=== PATIENT | female | born 1990 | race Caucasian/White ===

== ENCOUNTER 2019-05-11 07:00 | Inpatient (IN) | payer OTHER ==
[2019-05-11] MEDS ORDERED: AMPICILLIN - 2 GM in SODIUM CHLORIDE 100 ML IVPB ONE (07:30)
[2019-05-11] MEDS ORDERED: ELECTROLYTE-148 SOLN 1,000 ML IV SCH (07:30)
[2019-05-11 08:18] LABS: BASO % 0.2 % (0-2.0); EOS % 0.5 % (0-4.5); HEMATOCRIT 36.7 % (32.4-45.2); HEMOGLOBIN 12.5 GM/dL (10.7-15.3); LYMPH % 17.1 % (8-40); MCH 32.3 pg (25.7-33.7); MCHC 34.1 g/dl (32.0-36.0); MEAN CELL VOLUME 94.8 fl (80-96); MEAN PLT VOLUME 9.4 fl (7.5-11.1); MONO % 5.9 % (3.8-10.2); NEUT % 76.3 % (42.8-82.8); RBC 3.88 M/mm3 (3.60-5.2); RDW 13.2 % (11.6-15.6); WHITE BLOOD COUNT 9.7 K/mm3 (4.0-10.0)
[2019-05-11 08:24] VITALS: BMI 27.3
[2019-05-11] MEDS ORDERED: FENTANYL/BUPIVACAINE/NS/PF - PCEA - 50 ML DISP.SYRIN EP ONE (08:30)
[2019-05-11] MEDS ORDERED: NALOXONE HCL 0.4 MG/ML VIAL IVPUSH PRN (08:43)
[2019-05-11] MEDS ORDERED: FENTANYL/BUPIVACAINE/NS/PF - PCEA - 50 ML DISP.SYRIN EP SCH ×2 (08:45→09:45)
[2019-05-11] MEDS ORDERED: BUPIVACAINE HCL/PF 0.25% (2.5MG/ML) 10 ML VIAL ONE (08:49)
[2019-05-11] MEDS ORDERED: LIDO 2%/EPI 1:200000 PRESRVFRE (20 ML SDVIAL) ONE (08:49)
[2019-05-11 09:01] LABS: PLATELET COUNT 152 K/MM3 (134-434)
[2019-05-11 09:05] LABS: BLOOD UREA NITROGEN 5.5 mg/dL (7-18); CALCIUM 8.3 mg/dL (8.5-10.1); CREATININE 0.5 mg/dL (0.55-1.3); POTASSIUM 3.5 mmol/L (3.5-5.1)
--- NOTE | 2019-05-11 09:08 | HP ---
Past Medical History - Admission Chief Complaint: painful contractions, leaking fluid History of Present Illness: 29 y/o female with SIUP at 37.5 weeks gestation here with complaints of painful contractions and leaking fluid. Pt has h/o c section X 1 for breech, then successful . uncomplicated. GBS positive. HIV negative. 1 'GTT WNL. History Source: Patient, Medical Record - Past Medical History Cardiovascular: No: HTN Pulmonary: No: Asthma Reproductive: No: Fibroids, PID ...: 3 ...Para: 2 ...LMP: 08/20/18 ... Weeks Gestation by Dates: 36.1 ...EDC by Dates: 05/24/19 ...EDC by Sono: 05/27/19 Heme/Onc: No: Anemia Infectious Disease: No: HIV, MRSA, STD's Psych: No: Anxiety, Bipolar, Depression Endocrine: No: Diabetes Mellitus - Past Surgical History Past Surgical History: Yes: Hx Myomectomy: No Hx Transabdominal Cerclage: No - Smoking History Smoking history: Never smoked - Alcohol/Substance Use Hx Alcohol Use: No History of Substance Use: reports: None - Social History Usual Living Arrangement: Yes: With Spouse ADL: Independent History of Recent Travel: No Home Medications - Allergies Allergies/Adverse Reactions: Allergies Allergy/AdvReac Type Severity Reaction Status Date / Time No Known Allergies Allergy Verified 05/11/19 08:08 - Home Medications Home Medications: Ambulatory Orders Vitamins (Sjr) - 1 tab PO DAILY 05/11/19 Review of Systems - Review of Systems Constitutional: reports: No Symptoms Eyes: reports: No Symptoms HENT: reports: No Symptoms Neck: reports: No Symptoms Cardiovascular: reports: No Symptoms Respiratory: reports: No Symptoms Gastrointestinal: reports: No Symptoms Genitourinary: reports: No Symptoms Breasts: reports: No Symptoms Reported Musculoskeletal: reports: No Symptoms Integumentary: reports: No Symptoms Neurological: reports: No Symptoms Endocrine: reports: No Symptoms Hematology/Lymphatic: reports: No Symptoms Psychiatric: reports: No Symptoms Physical Exam - Maternity Vital Signs: Vital Signs Temperature 98.2 F 05/11/19 08:11 Pulse Rate 88 05/11/19 08:11 Respiratory Rate 20 05/11/19 08:11 Blood Pressure 123/81 05/11/19 08:11 O2 Sat by Pulse Oximetry (%) Constitutional: Yes: Well Nourished, No Distress Eyes: Yes: Conjunctiva Clear HENT: Yes: Atraumatic Neck: Yes: Supple Cardiovascular: Yes: Regular Rate and Rhythm Lungs: Clear to auscultation - Abdominal Exam/OB Fundal Height: 38 Number of Fetuses: Single Presentation: Vertex Contractions: Yes Regularity: Regular Intensity: Moderate Heart Rate (range): 135 Category: I Accelerations: Uniform Decelerations: None - Vaginal Exam/OB Speculum Exam: No Dilatation (cm): 6 Effacement (%): 100 Amniotic Fluid: Yes: Clear Presentation: Vertex/Position (exam per nursing staff) - Physical Exam Psychiatric: Yes: Alert, Oriented Hemorrhage Risk Assessment - Risk Factors Medium Risk Factors: Yes: None High Risk Factors: Yes: None Risk Score: 1 Risk Level: Medium Risk Problem List - Problems (1) Desires (vaginal after ) trial Code(s): O34.219 - MATERNAL CARE FOR UNSP TYPE SCAR FROM PREVIOUS DEL (2) History of Code(s): Z98.891 - HISTORY OF UTERINE SCAR FROM PREVIOUS SURGERY (3) Active labor at term Code(s): UQT8058 - (4) Group beta Strep positive Code(s): B95.1 - STREPTOCOCCUS, GROUP B, CAUSING DISEASES CLASSD ELSWHR Assessment/Plan 29 y/o p2 female with SIUP at 37.5 weeks, SROM/labor for TOLAC AFVSS FHTS cat 1 to get epidural GBS positive, continue ampicillin continue expectant management anticipate /
[2019-05-11 09:20] LABS: INR 0.97 (0.83-1.09); PROTHROMBIN TIME (PATIENT) 11.4 SEC (9.7-13.0)
[2019-05-11] MEDS ORDERED: AMPICILLIN SODIUM 1 GM VIAL ONE (10:29)
[2019-05-11] MEDS ORDERED: OXYTOCIN 20 UNITS in 0.9% NS 20 UNIT/1,000 ML INFUS.BAG IV ONE ×2 (11:26→14:45)
[2019-05-11] MEDS ORDERED: LIDOCAINE HCL 1% PRESERVATIVE FREE - 30ML VIAL ONE (11:26)
[2019-05-11] MEDS ORDERED: AMPICILLIN - 1 GM in SODIUM CHLORIDE 100 ML IVPB SCH (11:30)
--- NOTE | 2019-05-11 13:37 | PN ---
Delivery - Delivery Vaginal Delivery: No Problems, V-Edison Type of Anesthesia: Epidural Episiotomy/Laceration: None EBL (cc): 300 Delivery, Single - Stages of Labor Date of Delivery: 05/11/19 Time of Delivery: : Date Placenta Delivered: 05/11/19 Time Placenta Delivered: Placenta: Yes: Spontaneous - Condition of Infant Gardening Supervisor/House Painting Instructor Present: No Infant Gender: Male Position: Left, OA (compound with right hand) - 1 Minute Total Score: 9 5 Minutes Total Score: 9 - Hope Feeding Plan Initial Plan: Elected not to breastfeed exclusively throughout hospitalization Remarks - Remarks Remarks: successful across intact perineum from HEATHER position tight nuchal noted after delivery of head, clamped and cut at perineum anterior shoulder (right) delivered with ease along with remainder of 3vc noted placenta delivered in tact, spontaneously no laceration noted Apgars 9/9 EBL 300 cc oxytocin infusing after delivery mom stable baby to well baby nursery
[2019-05-11] MEDS ORDERED: WITCH HAZEL 50% (TUCKS) 40 PAD/JAR PAD TP PRN (13:39)
[2019-05-11] MEDS ORDERED: BENZOCAINE 28 GM HEMORRHOIDAL OINTMENT TP PRN (13:39)
[2019-05-11] MEDS ORDERED: METHYLERGONOVINE MALEATE 0.2 MG/1 ML AMP IM PRN (13:39)
[2019-05-11] MEDS ORDERED: BENZOCAINE 20% 57 GM BOTTLE TP PRN (13:39)
[2019-05-11] MEDS ORDERED: BISACODYL 10 MG SUPP.RECT RC PRN (13:39)
[2019-05-11] MEDS ORDERED: OXYTOCIN 20 UNITS in 0.9% NS 20 UNIT/1,000 ML INFUS.BAG IV SCH (13:45)
[2019-05-11] MEDS: IBUPROFEN 600 MG TABLET (FP) PO PRN (18:12)
[2019-05-11] MEDS: ACETAMINOPHEN 325 MG TABLET (FP) PO PRN (18:13)
--- NOTE | 2019-05-12 06:18 | PN ---
Post Progress Note - Subjective Subjective: Pt without complaints. Doing well overnight. Ambulating, voiding, passing flatus. Tolerating diet. Lochia small. No complaints. Post Day: 1 Type of Delivery: Vital Signs: Vital Signs Temperature 98.4 F 05/12/19 05:44 Pulse Rate 84 05/12/19 05:44 Respiratory Rate 20 05/12/19 05:44 Blood Pressure 115/70 05/12/19 05:44 O2 Sat by Pulse Oximetry (%) 100 05/11/19 13:05 Breast Exam: Yes: Soft Uterus: Yes: Fundus Firm Abdomen/GI: Yes: Abdomen soft, Passing flatus, Tolerating PO. No: Abdominal Distention, Tender Lochia: Yes: Rubra Lochia, amount: Small Extremities: Yes: Calves non-tender. No: Edema Perineum: Yes: Intact Activity: Ambulating - Labs Labs: CBC WBC 9.7 K/mm3 (4.0-10.0) 05/11/19 08:00 RBC 3.88 M/mm3 (3.60-5.2) 05/11/19 08:00 Hgb 12.5 GM/dL (10.7-15.3) 05/11/19 08:00 Hct 36.7 % (32.4-45.2) 05/11/19 08:00 MCV 94.8 fl (80-96) 05/11/19 08:00 MCH 32.3 pg (25.7-33.7) 05/11/19 08:00 MCHC 34.1 g/dl (32.0-36.0) 05/11/19 08:00 RDW 13.2 % (11.6-15.6) 05/11/19 08:00 Plt Count 152 K/MM3 (134-434) 05/11/19 08:00 MPV 9.4 fl (7.5-11.1) 05/11/19 08:00 Absolute Neuts (auto) 7.4 K/mm3 (1.5-8.0) 05/11/19 08:00 Neutrophils % 76.3 % (42.8-82.8) 05/11/19 08:00 Lymphocytes % 17.1 % (8-40) 05/11/19 08:00 Monocytes % 5.9 % (3.8-10.2) 05/11/19 08:00 Eosinophils % 0.5 % (0-4.5) 05/11/19 08:00 Basophils % 0.2 % (0-2.0) 05/11/19 08:00 Nucleated RBC % 0 % (0-0) 05/11/19 08:00 Problem List - Problems (1) Desires (vaginal after ) trial Code(s): O34.219 - MATERNAL CARE FOR UNSP TYPE SCAR FROM PREVIOUS DEL (2) History of Code(s): Z98.891 - HISTORY OF UTERINE SCAR FROM PREVIOUS SURGERY (3) Active labor at term Code(s): LKL4479 - (4) Group beta Strep positive Code(s): B95.1 - STREPTOCOCCUS, GROUP B, CAUSING DISEASES CLASSD ELSWHR (5) (vaginal after ) Code(s): O34.219 - MATERNAL CARE FOR UNSP TYPE SCAR FROM PREVIOUS DEL Assessment/Plan 29 y/o PPD#1 s/p successful encourage ambulation regular diet await a.m. CBC routine care
[2019-05-12 06:44] LABS: BASO % 0.3 % (0-2.0); EOS % 1.5 % (0-4.5); HEMOGLOBIN 12.4 GM/dL (10.7-15.3); LYMPH % 19.1 % (8-40); MCH 32.2 pg (25.7-33.7); MCHC 33.5 g/dl (32.0-36.0); MEAN PLT VOLUME 9.6 fl (7.5-11.1); MONO % 4.2 % (3.8-10.2); NEUT % 74.9 % (42.8-82.8); PLATELET COUNT 161 K/MM3 (134-434); RBC 3.85 M/mm3 (3.60-5.2); RDW 12.9 % (11.6-15.6); WHITE BLOOD COUNT 12.1 K/mm3 (4.0-10.0)
[2019-05-12] MEDS: ACETAMINOPHEN 325 MG TABLET (FP) PO PRN ×2 (08:00→16:41)
[2019-05-12] MEDS: IBUPROFEN 600 MG TABLET (FP) PO PRN ×2 (08:00→16:41)
[2019-05-12] MEDS: PRENATAL VITAMINS W/ FOLIC ACID TABLET (FP) PO SCH (09:51)
--- NOTE | 2019-05-12 18:52 | DS ---
Physical Exam-DIRECT OF REAL ESTATE Vital Signs: Vital Signs Temperature 98.8 F 05/12/19 09:11 Pulse Rate 81 05/12/19 09:11 Respiratory Rate 20 05/12/19 09:11 Blood Pressure 116/70 05/12/19 09:11 O2 Sat by Pulse Oximetry (%) 100 05/11/19 13:05 Constitutional: Yes: Well Nourished, No Distress Eyes: Yes: Conjunctiva Clear HENT: Yes: Atraumatic Neck: Yes: Supple Cardiovascular: Yes: Regular Rate and Rhythm Respiratory: Yes: Regular Gastrointestinal: Yes: Normal Bowel Sounds ....Post : Yes: Uterus firm, Uterus non-tender Neurological: Yes: Alert, Oriented Psychiatric: Yes: Alert, Oriented Labs: CBC, BMP 05/12/19 06:08 05/11/19 08:00 Delivery - Delivery Vaginal Delivery: No Problems, V-Edison Type of Anesthesia: Epidural Episiotomy/Laceration: None EBL (cc): 250 Delivery, Single - Stages of Labor Date 1st Stage Initiatied: 05/11/19 Time 1st Stage Initiated: 06:30 Date 2nd Stage Initiated: 05/11/19 Time 2nd Stage Initiated: 13:05 Date of Delivery: 05/11/19 Time of Delivery: 13:20 Time Placenta Delivered: 13:22 Placenta: Yes: Spontaneous - Condition of Lamination Inspector/Low Pressure Boiler Tender Present: No Infant Gender: Male Weight: 6 lb 12 oz Position: Left, OA Total Hours ROM (Hrs/Mins): 7hrs 50min - 1 Minute Total Score: 9 5 Minutes Total Score: 9 - Feeding Plan Initial Plan: Elected not to breastfeed exclusively throughout hospitalization Discharge Summary Reason For Visit: LABOR Current Active Problems Active labor at term (Acute) Desires (vaginal after ) trial (Acute) Group beta Strep positive (Acute) History of (Acute) (vaginal after ) (Acute) Hospital Course: Pt admitted on 05/11 in labor. Was previous c section and previous successful . She then underwent an uncomplicated and normal post recovery and was discharged home on post day 2. Condition: Good - Instructions Diet, Activity, Other Instructions: Physical activity Resume your normal everyday activity as tolerated no heavy lifting or exercise until seen by your surgeon. You may walk unlimited amounts and climb stairs. You may resume driving the car when you feel safe and comfortable behind the wheel. No sexual activity as instructed. Wound care You may shower daily, no soaking in tubs/baths/pools for 6 weeks or until cleared by your doctor. Diet There are no dietary restrictions. Eat healthy, high-fiber foods. Drink 6 to 8 glasses of liquid each day. This will assist in keeping your bowels regular. Pain management You may take Tylenol or acetaminophen or Ibuprofen as needed for pain. Call MD for any of the following: Severe pain not relieved by medication Fever of 101 or higher Excessive bleeding or drainage on dressing Inability to urinate Disposition: HOME - Home Medications Comprehensive Discharge Medication List: Ambulatory Orders Vitamins (Sjr) - 1 tab PO DAILY 05/11/19 Ibuprofen [Motrin -] 600 mg PO QID PRN #28 tablet 05/12/19
[2019-05-12] MEDS ORDERED: SENNOSIDES/DOCUSATE COMBO (SENNA PLUS) TABLET (UD) PO PRN (22:00)
[2019-05-13] MEDS: ACETAMINOPHEN 325 MG TABLET (FP) PO PRN ×2 (00:16→09:24)
[2019-05-13] MEDS: IBUPROFEN 600 MG TABLET (FP) PO PRN ×2 (00:16→09:23)
[2019-05-13 08:27] VITALS: BP 103/65; PULSE 76; TEMP 98.5
[2019-05-13] MEDS: PRENATAL VITAMINS W/ FOLIC ACID TABLET (FP) PO SCH (09:19)
[2019-05-13] MEDS ORDERED: DIPHTH,PERTUSS(ACELL),TET 0.5 ML DISP.SYRIN IM ONE (10:00)
== END 2019-05-13 13:00 | disposition home or self-care (01) | DRG 560 ==
LOC: JDEL 07:00 → JLDR 07:30 → J3W 14:45
PROVIDERS: ADMIT Obstetrics & Gynecology; ATTEND Obstetrics & Gynecology
PROC: 10E0XZZ Delivery of Products of Conception, External Approach (ICD-10-PCS; principal; 2019-05-11)
DX: O34.219 Maternal care for unspecified type scar from previous cesarean delivery (principal); O99.824 Streptococcus B carrier state complicating childbirth; Z3A.37 37 weeks gestation of pregnancy; Z37.0 Single live birth
CPT/HCPCS: 36415; 59409; 80048; 85025; 85610; 85730; 86593; 86850; 86900; 86901; 90715

== ENCOUNTER 2019-07-17 05:03 | Day surgery (SDC) | payer OTHER ==
[2019-07-12 17:38] VITALS: BMI 24.3
[2019-07-17] MEDS ORDERED: IBUPROFEN 600 MG TABLET (FP) PO PRN (09:48)
[2019-07-17] MEDS ORDERED: ACETAMINOPHEN 325 MG TABLET (FP) PO PRN (09:48)
--- NOTE | 2019-07-17 09:49 | HP ---
History & Physical Update - History History: No Change - Physical Physical: No Change - Assessment Assessment: No Change - Plan Plan: No Change (No change in H&P, for laparoscopic bilateral salpingectomy) <Gwendolyn Verde - Last Filed: 07/17/19 09:48> - History History: Change (see notes) (no change since visit on 07/12/19) <Lindsey Tong - Last Filed: 07/17/19 10:06>
[2019-07-17] MEDS ORDERED: LIDOCAINE HCL/PF 2% SDV 5ML VIAL ONE (09:55)
[2019-07-17] MEDS ORDERED: PROPOFOL 20 ML ONE ×2 (09:55)
[2019-07-17] MEDS ORDERED: DEXAMETHASONE SOD PHOSPHATE 4 MG/1 ML VIAL ONE (09:55)
[2019-07-17] MEDS ORDERED: ROCURONIUM BROMIDE 50 MG/5 ML SYRINGE ONE (09:55)
[2019-07-17] MEDS ORDERED: MIDAZOLAM HCL 2 MG/2 ML SINGLE DOSE VIAL ONE (09:55)
[2019-07-17] MEDS ORDERED: LACTATED RINGERS SOLUTION 1,000 ML IV SCH (10:00)
[2019-07-17] MEDS ORDERED: GLYCOPYRROLATE 0.2 MG/1 ML VIAL ONE (10:29)
[2019-07-17] MEDS ORDERED: NEOSTIGMINE METHYLSULFATE 0.5 MG/ML - 10 ML MDV ONE (10:29)
[2019-07-17] MEDS ORDERED: KETOROLAC TROMETHAMINE 30 MG/1 ML VIAL ONE (10:29)
[2019-07-17] MEDS ORDERED: BUPIVACAINE HCL/PF 0.5% (5 MG/ML) 30 ML VIAL IJ ONE ×2 (10:38→10:45)
--- NOTE | 2019-07-17 11:00 | OP ---
Operative Note - Note: Operative Date: 07/17/19 (dictation [id number]) Pre-Operative Diagnosis: desires permanent sterilization, multiparity Operation: laparoscopic bilateral salpintgectomy Post-Operative Diagnosis: Same as Pre-op Surgeon: Gwendolyn Verde Drying Supervisor: Lindsey Tong Anesthesia: General Specimens Removed: bilateral fallopian tubes Estimated Blood Loss (mls): 2 Operative Report Dictated: Yes
[2019-07-17] MEDS ORDERED: ONDANSETRON 4 MG/2 ML VIAL IVPUSH PRN (11:14)
[2019-07-17] MEDS ORDERED: oxyCODONE HCL 5 MG TABLET PO PRN (11:14)
--- NOTE | 2019-07-17 11:29 | SURG ---
Surgery Equipment Coordinator Note Equipment Coordinator: Lindsey Tong PA-C Date of Service: 07/17/19 Diagnosis: desires permanent sterilization, multiparity Procedure: laparoscopic bilateral salpintgectomy I was present for the entirety of the operative procedure. For further detail, please refer to operative report. Visit type - Case Type Case Type: Scheduled - Emergency Emergency Visit: No - New patient This patient is new to me today: Yes Date on this admission: 07/17/19
[2019-07-17 12:29] VITALS: TEMP 97.7
[2019-07-17 14:08] VITALS: BP 106/65; PULSE 75
--- NOTE | 2019-07-17 15:02 | OP ---
DATE OF OPERATION: 07/17/2019 PREOPERATIVE DIAGNOSIS: Desire for permanent sterilization. POSTOPERATIVE DIAGNOSIS: Desire for permanent sterilization. PROCEDURE: Laparoscopic bilateral salpingectomy. SURGEON: Gwendolyn Verde DO DISTRICT WILDLIFE MANAGER: JESENIA Sue ANESTHESIA: General by Josette Waters MD COMPLICATIONS: None. ESTIMATED BLOOD LOSS: 2 mL. SPECIMENS REMOVED: Included bilateral fallopian tubes. Sponge, needle, and instrument count correct. DISPOSITION: Stable to PACU. BRIEF HISTORY AND PROCEDURE: Patient is a 29-year-old female who had been seen in the office with request for sterilization procedure. She did not desire any future childbearing. The patient was counseled on her options, and she elected to undergo a laparoscopic bilateral salpingectomy. Consents for the procedure were signed. She was then admitted to [facility] on July 17, 2019 where consents were reconfirmed. The patient was taken back to the operating room, given general anesthesia, and placed in the dorsal lithotomy position. A Martinez catheter was placed under sterile conditions. She was prepped and draped in the usual sterile fashion. A hard time-out was performed. A 5-mm skin incision was created in the inferior portion of the umbilicus. A Veress needle was inserted intra-abdominally, and the abdomen was insufflated with CO2 gas. Then a 5-mm trocar was inserted into the incision and the camera was inserted to confirm intra-abdominal placement. After confirmation of trocar intraperitoneally, 2 bilateral lower quadrant 5-mm trocars were placed under direct visualization. The left fallopian tube was identified, elevated, and traced to its fimbriated end and dissected off its attachment to the mesosalpinx, ovary , and uterus using the LigaSure device. The same was repeated with the right fallopian tube. Both fallopian tubes were removed from the abdomen through the trocars at this time and sent to Pathology for permanent evaluation. Inspection of the surgical site revealed excellent hemostasis, and no other ovarian, uterine, or [employer] DRIVER pathology was appreciated. Some omental adhesions in the anterior abdominal wall were noted. At this time, the abdomen was desufflated and trocars were removed. The skin was reapproximated with 4-0 Biosyn and Dermabond surgical glue. The patient was awoken from anesthesia. Martinez catheter was removed. She was recovering in stable condition after the procedure. Sponge, needle and instrument counts were reported correct at the end of the case. GWENDOLYN VERDE DO /[id number] MTDD
--- NOTE | 2019-07-22 13:50 | PATH ---
Surgical Pathology Report Patient Name: [facility]. Rec. #: [id number] /Age/Gender: 1990 (Age: 29) / F Account: [id number] Location: [facility] SURGICAL Taken: 07/17/2019 Received: 07/17/2019 Reported: 07/22/2019 Physicians: Gwendolyn Verde M.D. Specimen(s) Received A: RIGHT FALLOPIAN TUBE B: LEFT FALLOPIAN TUBE Clinical History Voluntary sterilization Final Diagnosis A. RIGHT FALLOPIAN TUBE, SALPINGECTOMY: COMPLETE CROSS SECTION OF THE FALLOPIAN TUBE LUMEN IDENTIFIED. B. LEFT FALLOPIAN TUBE, SALPINGECTOMY: COMPLETE CROSS SECTION OF THE FALLOPIAN TUBE LUMEN IDENTIFIED. Electronically Signed Andrea Ramon M.D. Gross Description A. Received fresh labelled "right fallopian tube" is a 6.5 cm long by 0.3 cm in diameter portion of fallopian tube with a fimbriated end. Sectioned and associate sales representative sections submitted in one cassette. C. Received fresh labelled "left fallopian tube" is a 6.5 cm long by 0.3 cm in diameter portion of fallopian tube with a fimbriated end. Sectioned and associate sales representative sections submitted in one cassette. TIA/07/17/2019 syed/07/17/2019
== END 2019-07-17 14:11 | disposition home or self-care (01) ==
LOC: JASU-SURG 05:03
PROVIDERS: ATTEND Obstetrics & Gynecology
PROC: 0UT74ZZ Resection of Bilateral Fallopian Tubes, Percutaneous Endoscopic Approach (ICD-10-PCS; principal; 2019-07-17 10:00)
DX: Z30.2 Encounter for sterilization (principal)
CPT/HCPCS: 84703; 88302-TC; 94760